=== PATIENT | male | born 1975 | race Asian ===

== ENCOUNTER 2017-01-06 20:33 | Emergency (ER) | payer MEDICAID ==
[~2017-01-06] VITALS: Ht 157.5 cm; Wt 86.4 kg
[~2017-01-06 20:33] MED LIST: ALLO300 PO; FURO20 PO; KDUR10 PO; LISI10TA PO
[2017-01-07] MEDS ORDERED: DEXAMETHASONE SOD PHOS 4 MG/ML 5 ML VIAL IM ONE (00:45)
[2017-01-07] MEDS ORDERED: HYDROCODONE/ACETAMINOPHEN 5-325 MG TABLET PO ONE (00:45)
[2017-01-07] MEDS ORDERED: COLCHICINE 0.6 MG TABLET PO ONE (00:45)
[2017-01-07 01:11] VITALS: BP 144/98
== END 2017-01-07 01:13 | disposition home or self-care (01) ==
LOC: EMS 20:40
DX: M10.9 Gout, unspecified (principal); R26.2 Difficulty in walking, not elsewhere classified; I10 Essential (primary) hypertension
CPT/HCPCS: 96372; 99283; J1100

== ENCOUNTER 2017-08-21 12:23 | Emergency (ER) | payer MEDICAID ==
[~2017-08-21] VITALS: Ht 160 cm; Wt 90.9 kg
[~2017-08-21 12:23] MED LIST changes: -LISI10TA PO
[2017-08-21] MEDS ORDERED: SACU1TAB PO (12:47)
[2017-08-21] MEDS ORDERED: AMLO-512 PO (12:48)
[2017-08-21 15:04] VITALS: BP 149/80
== END 2017-08-21 16:08 | disposition home or self-care (01) ==
LOC: EMS 12:25
DX: M10.9 Gout, unspecified (principal); M25.532 Pain in left wrist; M25.531 Pain in right wrist; I10 Essential (primary) hypertension; M19.90 Unspecified osteoarthritis, unspecified site
CPT/HCPCS: 99283

== ENCOUNTER 2017-09-01 14:46 | Emergency (ER) | payer MEDICAID ==
[~2017-09-01] VITALS: Ht 160 cm; Wt 91.8 kg
[~2017-09-01 14:46] MED LIST changes: +AMLO-512 PO; +SACU1TAB PO
[2017-09-01 15:57] VITALS: BP 193/105
[2017-09-01] MEDS ORDERED: INDOMETHACIN 25 MG CAPSULE PO ONE (16:00)
[2017-09-01] MEDS ORDERED: KETOROLAC TROMETHAMINE 30 MG/ML VIAL IM ONE (16:00)
[2017-09-01] MEDS ORDERED: COLCHICINE 0.6 MG TABLET PO ONE (16:00)
== END 2017-09-01 16:38 | disposition home or self-care (01) ==
LOC: EMS 14:47
DX: M10.9 Gout, unspecified (principal); M79.644 Pain in right finger(s); M79.89 Other specified soft tissue disorders; I10 Essential (primary) hypertension
CPT/HCPCS: 96372; 99283; J1885